=== PATIENT | male | born 1965 | race Caucasian/White ===

== ENCOUNTER 2017-03-07 07:36 | Day surgery (SDC) | payer BC ==
[2017-03-07] VITALS (7 sets, daily range): BP systolic 103–131; BP diastolic 65–82; PULSE 72–92; RESP 12–22; TEMP 97.1–98.7; O2SAT 93–96; Ht 186.7 cm; Wt 94.4 kg
[~2017-03-07] VITALS: Ht 186.7 cm; Wt 94.4 kg
[~2017-03-07 07:36] MED LIST: ALBU18HF2 INH; DAPS25TA6 PO; FEXO1TAB11 PO; LIDOCAINE 1% (10mg/ml) 2ml SDV INJ ONE; LR 1,000 ML IV SCH
--- OUTSIDE RECORDS SUMMARY | 2017-03-07 07:40 | XMS REPORT | Summary of Care ---
Author Author Tanvir Pastor M.D. 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 Start 25-Oct-2008 Active Allergies and Adverse Reactions Name Dates Details No Known Drug Allergies (Allergy) Status: Active Procedures Procedure Dates Details Procedures not documented Immunization Name Dates Details Fluzone Quadrivalent 0.5 ML Intramuscular Suspension Lot #: [id number] on: 01-Aug-2016 Social History Name Dates Details Unknown if ever smoked Vital Signs Date Test Result Details No Known Vitals to report Results Date Description Value Details 05-Nov-2016 16:15 CBC w/ Auto Diff 7150 WBC 6.0 K/uL Range: 4.5-11.0 RBC 4.06 mil/uL (Below low threshold) Range: 4.20-5.40 HGB 12.7 g/dL (Below low threshold) Range: 14.0-18.0 HCT 37.8 % (Below low threshold) Range: 42.0-53.0 MCV 93.1 fL Range: 80.0-99.0 MCH 31.4 pg Range: 27.3-32.5 MCHC 33.7 % Range: 32.0-36.0 RDW 13.8 % Range: 11.6-14.8 PLATELETS 204 K/uL Range: 150-400 MPV 7.9 fL Range: 6.0-11.0 %NEUTRO 65.6 % Range: 37.0-80.0 %LYMPHS 25.6 % Range: 13.0-50.0 %MONO 4.9 % Range: 0.0-12.0 %EOS 1.7 % Range: 0.0-7.0 %BASO 0.4 % Range: 0.0-2.5 %PAMELA 1.8 % Range: 0.0-5.0 NEUTRO 3.9 K/uL Range: 2.0-6.9 LYMPHS 1.5 K/uL Range: 0.6-3.4 MONOS 0.3 K/uL Range: 0.0-0.9 EOS 0.1 K/uL Range: 0.0-0.7 BASO 0.0 K/uL Range: 0.0-0.2 Plan of Care Name Dates Details Planned Observations Planned Goals not documented Planned Encounters Appointment; Provider: Tanvir Pastor M.D. On 11-Nov-2017 15:45 Interventions Provided Medication Changes* Dapsone 25 MG Oral Tablet - Renew Instructions Name Dates Details Instructions not documented Encounters Appointment; Tanvir Pastor M.D. Encounter Diagnosis: Problem not documented On 16-Nov-2015 15:45 Appointment; Tanvir Pastor M.D. Encounter Diagnosis: Problem not documented On 15-Nov-2014 15:45
--- OUTSIDE RECORDS SUMMARY | 2017-03-07 07:40 | XMS REPORT | Referral Summary ---
Author Organization Unknown Address Unknown Phone Unavailable Care Team Providers Care Corporate Training Manager Name Role Phone Soham, Rob Primary Care Physician [phone] Encounter VC Date(s): 02/04/15 - 02/04/15 [facility] Chand, Dennis, Family [address] [place] [address]- Discharge Diagnosis: Tinnitus Discharge Disposition: Home or Self Care Attending Physician: Carmen Doherty APRN Admitting Physician: Carmen Doherty APRN Vital Signs Most recent to 1 oldest [Reference Range]: Temperature Tympanic 36.0 degC [36.6-38.1 degC] *LOW* (02/04/15 1:31 PM) Peripheral Pulse 64 bpm Rate [60-100 bpm] (02/04/15 1:31 PM) Blood Pressure 124/68 mmHg [90-140/60-90 mmHg] (02/04/15 1:31 PM) Problem List Condition Effective Dates Status Health Status Informant Allergic rhinitis Active (disorder)(Confirmed ) Allergic Resolved rhinitis(Confirmed) Dermatitis Active herpetiformis (disorder)(Confirmed ) Dermatitis Resolved herpetiformis(Confir med)1 Exercise induced Resolved asthma(Confirmed) Exercise-induced Active asthma (disorder)(Confirmed ) Adult Active hypothyroidism(Confi rmed) migraine Resolved headaches(Confirmed) 1gluten allergy-treated with Dapsone Allergies, Adverse Reactions, Alerts No Known Medication Allergies Medications albuterol CFC free 90 mcg/inh inhalation aerosol 1 puffs, Inhalation, QID, as needed for wheezing, # 1 Each, 0 Refill(s) Start Date: 03/25/14 Status: Ordered dapsone Oral, Daily, takes 30mg daily by mouth, 0 Refill(s) Special Instructions: takes 30mg daily by mouth Start Date: 05/14/14 Status: Ordered Flonase 50 mcg/inh nasal spray 1 sprays, Nasal, BID, 0 Refill(s) Start Date: 03/25/14 Status: Ordered levothyroxine 50 mcg (0.05 mg) oral tablet 1 tabs, Oral, Daily, # 30 tabs, 1 Refill(s), Pharmacy: [facility] #[id number] , 1 tabs Oral Daily Start Date: 09/29/14 Status: Ordered loratadine 10 mg oral tablet 1 tabs, Oral, Daily, 0 Refill(s) Start Date: 03/25/14 Status: Ordered Results No data available for this section Immunizations Vaccine Date Refusal Reason tetanus/diphth/pertuss (Tdap) adult/adol 01/26/14 Procedures Procedure Date Related Diagnosis Body Site Appendectomy Parathyroidectomy Social History Social History Type Response Smoking Status Never smoker Assessment and Plan Extracted from: Title: Ambulatory Patient Education Author: Carmen Doherty APRN Date : 02/04/15 Family Medicine Tinnitus Sounds you hear in your ears and coming from within the ear is called tinnitus . This can be a symptom of many ear disorders. It is often associated with hearing loss. Tinnitus can be seen with: Infections. Ear blockages such as wax buildup. Meniere's disease. Ear damage. Inherited. Occupational causes. While irritating, it is not usually a threat to health. When the cause of the tinnitus is wax, infection in the middle ear, or foreign body it is easily treated. Hearing loss will usually be reversible. TREATMENT When treating the underlying cause does not get rid of tinnitus, it may be necessary to get rid of the unwanted sound by covering it up with more pleasant background noises. This may include music, the radio etc. There are tinnitus maskers which can be worn which produce background noise to cover up the tinnitus. Avoid all medications which tend to make tinnitus worse such as alcohol, caffeine, aspirin, and nicotine. There are many soothing background tapes such as rain, ocean, thunderstorms, etc. These soothing sounds help with sleeping or resting. Keep all follow-up appointments and referrals. This is important to identify the cause of the problem. It also helps avoid complications, impaired hearing, disability, or chronic pain. Document Released: 10/07/2006 Document Revised: 12/29/2012 Document Reviewed: ExitCare Patient Information 2014 [facility]. No follow up information was provided. Extracted from: Title: Office Visit Note Author: Carmen Doherty APRN Date: 02/04/15 Assessment/Plan 1.Tinnitus Discussed etiology and treatment. Watch and wait. White noise/ sound machine at night if unable to sleep. Let us know if s/s persist or worsen.
--- OUTSIDE RECORDS SUMMARY | 2017-03-07 07:41 | XMS REPORT | Summary of Care ---
Author Author Tanvir Pastor M.D. 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) Status: Active High risk medication use (V58.69, Z79.899) Status: Active Medications Name Dates Details Dapsone 25 MG Oral Tablet take three tablets by mouth every day Quantity: 90 Tanvir Pastor M.D.* Started 25-Oct-2008 Active Allergies and Adverse Reactions Name Dates Details No Known Drug Allergies Status: Active Procedures Procedure Dates Details CBC w/ Auto Diff 7150 Ordered:14-Nov-2015 Immunization Name Dates Details Immunizations not documented Social History Smoking Status* Unknown if ever smoked Vital Signs Date Test Result Details No Known Vitals to report Results Date Description Value Details Results not documented Plan of Care Planned Observations* Name Dates Details Planned Goals not documented Goal Planned Encounters* Appointment; Provider: Tanvir Pastor On 16-Nov-2015 15:45 Instructions * Instructions not documented Encounters Appointment; Tanvir Pastor Encounter Diagnosis: Problem not documented On 15-Nov-2014 15:45
--- OUTSIDE RECORDS SUMMARY | 2017-03-07 07:41 | XMS REPORT | Continuity of Care Document ---
Author Author [facility] Organization [facility] Address Unknown Phone Unavailable Allergies Active Description Code Type Severity Reaction Onset Reported/Identified Relationship to Patient Clinical Status Yes No Known Medication Allergies NKMA N/A N/A 05/14/2014 Medications Problems Procedures Results Encounters ACCT No. Visit Date/Time Discharge Status Pt. Type Provider Facility Loc./Unit Complaint [id number] 10/26/2014 15:33:00 2014 23:59:00 DIS Outpatient Rene Rousseau [facility] cardio issues [id number] 10/01/2014 14:51:00 2013 23:59:00 DIS Outpatient Rene Rousseau [facility] Mur Card HOLTER/785.0/RAVEN [id number] 09/28/2014 14:20:00 2013 23:59:00 DIS Outpatient Rene Rousseau [facility] chest discomfort [id number] 09/28/2014 12:23:00 2013 23:59:00 DIS Outpatient Rene Rousseau [facility] Mur Card Tachycardia 785.0 [id number] 02/04/2015 13:19:00 Document Registration
--- OUTSIDE RECORDS SUMMARY | 2017-03-07 07:41 | XMS REPORT | Summary of Care ---
Author Author Tanvir Pastor M.D. Unknown Address Unknown Phone Unavailable Care Team Providers Care Food Broker Name Role Phone Dawit Carter, R Unavailable [...] Quadrivalent 0.5 ML Intramuscular Suspension Lot #: [id number] on: 01-Aug-2016 Social History Name Dates Details [...] Pastor M.D. On 11-Nov-2017 15:45 Interventions Provided Labs/Procedures/Imaging* CBC w/ Auto Diff 7150; Done: Nov 05 2016 3:58PM Instructions Name Dates Details Instructions not documented Encounters Appointment; Tanvir Pastor M.D. Encounter Diagnosis: Problem not documented On 16-Nov-2015 15:45 Appointment; Tanvir Pastor M.D. Encounter Diagnosis: Problem not documented On 15-Nov-2014 15:45
--- OUTSIDE RECORDS SUMMARY | 2017-03-07 07:41 | XMS REPORT | Summary of Care ---
Author Author Regino Gallardo R.N., Kathy L Organization Unknown Address Unknown Phone Unavailable Care Team Providers Care Supervisor Wet Room Name Role Phone Regino Gallardo R.N., L Unavailable Unavailable Katrin Pastor M.D. Unavailable Unavailable Rene Rousseau Unavailable Unavailable Unavailable [...] MOUTH DAILY Quantity: 90 Tanvir Pastor M.D. 25-Oct-2008 Active Allergies and Adverse Reactions Name Dates Details No Known Drug Allergies (Allergy) Status: Active Procedures Procedure Dates Details Procedures not documented Immunization Name Dates Details Fluzone Quadrivalent 0.5 ML Intramuscular Suspension Lot #: [id number] on: 01-Aug-2016 Social History Name Dates Details Unknown if ever smoked Vital Signs Date Test Result Details No Known Vitals to report Results Date Description Value Details Results not documented Plan of Care Name Dates Details Planned Observations Planned Goals not documented Planned Encounters Appointment; Provider: Tanvir Pastor M.D. On 05-Nov-2016 15:30 Instructions Name Dates Details Instructions not documented Encounters Appointment; Tanvir Pastor M.D. Encounter Diagnosis: Problem not documented On 16-Nov-2015 15:45 Appointment; Tanvir Pastor M.D. Encounter Diagnosis: Problem not documented On 15-Nov-2014 15:45
--- OUTSIDE RECORDS SUMMARY | 2017-03-07 07:41 | XMS REPORT | Summary of Care ---
Author Author Tanvir Pastor M.D. 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) Status: Active High risk medication use (V58.69, Z79.899) Status: Active Medications Name Dates Details Dapsone 25 MG Oral Tablet take three tablets by mouth every day Quantity: 90 Tanvir Pastor M.D.* Started 25-Oct-2008 Active Allergies and Adverse Reactions Name Dates Details No Known Drug Allergies Status: Active Procedures Procedure Dates Details Procedures not documented Immunization Name Dates Details Immunizations not documented Social History Smoking Status* Unknown if ever smoked Vital Signs Date Test Result Details No Known Vitals to report Results Date Description Value Details 12-Nov-2014 17:21 CBC w/ Auto Diff 7150 Comments: Appt. 11/15/[address] Pastor WBC 7.3 K/uL (Better) Range: 4.5-11.0 RBC 4.51 mil/uL (Better) Range: 4.20-5.40 HGB 13.0 g/dL (Below low threshold) Range: 14.0-18.0 HCT 40.3 % (Below low threshold) Range: 42.0-53.0 MCV 89.4 fL (Better) Range: 80.0-99.0 MCH 28.9 pg (Better) Range: 27.3-32.5 MCHC 32.3 % (Better) Range: 32.0-36.0 RDW 13.4 % (Better) Range: 11.6-14.8 PLATELETS 244 K/uL (Better) Range: 150-400 MPV 8.5 fL (Better) Range: 6.0-11.0 %NEUTRO 63.2 % (Better) Range: 37.0-80.0 %LYMPHS 24.2 % (Better) Range: 13.0-50.0 %MONO 7.8 % (Better) Range: 0.0-12.0 %EOS 2.1 % (Better) Range: 0.0-7.0 %BASO 0.8 % (Better) Range: 0.0-2.5 %PAMELA 2.0 % (Better) Range: 0.0-5.0 NEUTRO 4.6 K/uL (Better) Range: 2.0-6.9 LYMPHS 1.8 K/uL (Better) Range: 0.6-3.4 MONOS 0.6 K/uL (Better) Range: 0.0-0.9 EOS 0.2 K/uL (Better) Range: 0.0-0.7 BASO 0.1 K/uL (Better) Range: 0.0-0.2 Plan of Care Planned Observations* Name Dates Details Planned Goals not documented Goal Planned Encounters* Appointment; Provider: Tanvir Pastor On 15-Nov-2014 15:45 Instructions * Instructions not documented Encounters Appointment; Tanvir Pastor Encounter Diagnosis: Problem not documented On 09-Nov-2013 15:30
--- OUTSIDE RECORDS SUMMARY | 2017-03-07 07:41 | XMS REPORT | Summary of Care ---
Author Author Tanvir Pastor M.D. Organization Unknown Address [address] [place], [place] [id number] Phone Unavailable Care Team Providers Care Potato Chip Maker Name Role Phone Dawit Carter, R Unavailable [...] Diagnosis: Problem not documented On 15-Nov-2014 15:45 Appointment; Tanvir Pastor Encounter Diagnosis: Problem not documented On 09-Nov-2013 15:30
--- NOTE | 2017-03-07 08:09 | ANESPREOP ---
Anesthesia Record Date and Time DATE: 03/07/17 TIME: 08:07 Pre-Op Diagnosis crcs Proposed Surgical Procedure SCREENING COLONOSCOPY Allergies: Coded Allergies: No Known Allergies (Unverified , 03/06/17) Ht/Wt/BMI Height: 6 ' 1.50 " Weight: 94.400 kg BMI: 27.1 kg/m2 Vital Signs Date Time Temp Pulse Resp B/P Pulse Ox O2 Delivery O2 Flow Rate FiO2 03/07/17 07:58 98.7 79 13 116/77 93 Room Air Medications Inpatient Medications Current Medications Medications (Trade) Dose Ordered Sig/Lyndsey Start Time Stop Time Status Last Admin Dose Admin Lactated Ringer's (Lactated Ringers) 1,000 ml @ 50 mls/hr Q20H 03/07/17 07:00 Albuterol Sulfate (Ventolin HFA 90 mcg/actuation) 18 Gm Hfa.aer.ad, 1-2 PUFF INH PRN, (Reported) Dapsone (Dapsone) 25 Mg Tablet, 2 TAB PO HS, (Reported) Fexofenadine/Pseudoephedrine (Ni-D 24 Hour Tablet) 1 Each Tab.er.24h, 1 TAB PO DAILY PRN for ALLERY SYMPTOMS, (Reported) Currently on Beta Cb: No Medical/Surgical History Anesthesia PMH: Reports: Anesthesia Reactions (NO AIRWAY ISSUES), Arthritis, Asthma (USES INH. EXERCISE INDUCED), Denies: Cancer, Clotting Problems, Glaucoma , Malignant Hyperthermia, Renal Disease Smoking Status: Never smoker Has pt. smoked today?: No Use Chewing Tobacco?: No Second Hand Exposure: No Substance Use Type: does not use Substance last used: unknown Alcohol Intake: rarely Last Drink: unknown Past Surgical History Orthopedic Surgeries: Abdominal Surgeries: Yes - APPY Genitourinary Surgeries: Cardiac Surgeries: Endocrine Surgeries: Yes - PARATHYROID SURGERY Reproductive Surgeries: Neurological Surgeries: Ear Surgeries: Nose Surgeries: Throat Surgeries: Other Surgeries: Anesthesia Adverse Reactions: FOUND none Family Hx of Anesthesia Advers: none Hx of Motion Sickness: No Pertinent Findings EKG Rhythm: Sinus Rhythm Physical Exam Respiratory: Bilat breath sounds equal, Lungs clear Cardiovascular: FOUND Regular rate, rhythm, FOUND No murmur Airway Assessment Mallampati Score: II TMD: 3 Fingerbreadths Neck Extension: Good Overall Assessment: No Airway Concerns ASA: 2 Plan Anesthesia Plan: TIVA Discussion Discussed risks/options/alternatives of anesthesia and questions answered. Patient consents. Nursing pain assessment noted. Attestation Statement Prior to the delivery of any anesthetic medication, I examined the patient, developed the plan, obtained the patient's consent and discussed the risk and benefits of the procedure with the patient/guardian. FRANK MARTINEZ CRNA March 07, 2017 08:09
[2017-03-07] MEDS: FLEET PHOSPHO-SODA 133 ML ENEMA RECTALLY PRN ×2 (08:11→08:23)
[2017-03-07] MEDS ORDERED: PROPOFOL 500mg 50 ML IV ONE (08:45)
[2017-03-07] MEDS ORDERED: LIDOCAINE 1% (10mg/ml) 2ml SDV ONE (08:45)
[2017-03-07] MEDS ORDERED: PROPOFOL 200mg 20 ML IV ONE (09:10)
--- NOTE | 2017-03-07 10:05 | ANESPO ---
Post-Op Note Date 03/07/17 Time: 10:04 Status Pt Participated in Evaluation: Pt participated in person Vital Signs Date Time Temp Pulse Resp B/P Pulse Ox O2 Delivery O2 Flow Rate FiO2 03/07/17 09:53 72 22 131/82 93 Room Air 03/07/17 09:17 97.1 Respiratory Function: Airway patent, Regular respirations Cardiovascular Function: Regular pulse Mental Status: Alert/oriented Pain Level Intensity: 0 (0) Unable to Assess Pain Due To: Medicated/Sleeping Hydration: Taking po fluids Complications during Recovery None apparent Post-Anesthesia Notes pt. layton. well Follow-Up Instructions Instructions Per Surgeon Additional Information none FRANK MARTINEZ CRNA March 07, 2017 10:05
--- NOTE | 2017-03-07 13:22 | OPNOTEF ---
DATE OF PROCEDURE: 03/07/2017 SURGEON: Leonid Jurado MD PREOPERATIVE DIAGNOSIS Colorectal cancer surveillance. POSTOPERATIVE DIAGNOSIS Colorectal cancer surveillance, normal colonoscopy. PROCEDURE: Colonoscopy. ANESTHESIA: TIVA. BRIEF HISTORY/INDICATIONS Nallely is a 51-year-old patient of mine who had never had a colonoscopy. We discussed colorectal cancer surveillance and decided to proceed with a colonoscopy as part of his screening. For completeness please refer to office notes. FINDINGS Upon colonoscopy, there was no evidence for angiodysplastic lesions, polyps, diverticula or stanley malignancies. DESCRIPTION OF PROCEDURE After informed consent was obtained, the patient was brought to the endoscopy suite and placed on the table in left lateral decubitus position. The patient subsequently underwent total intravenous anesthesia by the nurse chyron operator per my request. Next, a digital rectal examination was performed. Normal sphincter tone. No rectal masses were appreciated. An Olympus colonoscope was inserted in the anus and advanced with the lumen of the colon under direct visualization at all times until the cecum was ascertained. Triangulation of the taenia coli, ileocecal valve and appendiceal lumen were all visualized. The scope was then slowly withdrawn, again while maintaining visualization of the lumen at all times. As stated above, the entire colon was without evidence for angiodysplastic lesions, polyps, diverticula or stanley malignancies. The scope continued to be withdrawn until it was brought forth back into the rectal vault. A J-maneuver was then performed. No worrisome perianal pathology was noted. The scope was allowed to straighten and was withdrawn through the anal verge. The patient tolerated the procedure without difficulty and was sent back to the preop area in stable condition. Secondary to the absence of findings upon this colonoscopy, the patient will not need to undergo a repeat colonoscopy until ten years from now unless new indications should arise. INO
== END 2017-03-07 10:05 | disposition home or self-care (01) ==
LOC: NSC 07:36
PROVIDERS: ATTEND Family Medicine
DX: Z12.11 Encounter for screening for malignant neoplasm of colon (principal); R06.83 Snoring; J45.909 Unspecified asthma, uncomplicated; Z79.899 Other long term (current) drug therapy
CPT/HCPCS: 45378; J2704; J7120